=== PATIENT | male | born 1940 | race Caucasian/White ===

== ENCOUNTER 2016-03-17 12:16 | Observation (INO) | payer OTHER ==
[~2016-03-17] VITALS: Ht 175.3 cm; Wt 97.3 kg
[~2016-03-17 12:16] MED LIST: ALLOPURINOL300 MG PO; CELEBREX200 MG PO; FLOMAX0.4 M1 PO; FLOMAX0.4 MG PO; IBUPROFEN800 MG PO; PERCOCET 5/31 TABLET PO; SIMVASTATIN40 M1 PO
[2016-03-17] MEDS ORDERED: ZESTRIL20 MG PO (12:56)
[2016-03-17] MEDS ORDERED: TRAMADOL HCL50 MG PO (12:57)
[2016-03-17] MEDS ORDERED: ZYTIGA250 MG PO (12:57)
[2016-03-17] MEDS ORDERED: MILLIPRED5 MG PO (12:58)
[2016-03-17] MEDS ORDERED: MORPHINE SULFAT15 M1 PO ×2 (12:59→13:00)
[2016-03-17] MEDS ORDERED: FISH OIL 1,0001 EAC7 PO (13:01)
[2016-03-17] MEDS ORDERED: SAW PALMETTO450 MG PO (13:02)
[2016-03-17] MEDS ORDERED: CINNAMON500 MG PO (13:03)
[2016-03-17] MEDS ORDERED: CALCIUM600 M1 PO (13:04)
[2016-03-17] MEDS ORDERED: MAGNESIUM250 MG PO (13:05)
[2016-03-17] MEDS ORDERED: CO Q-1050 MG PO (13:05)
[2016-03-17] MEDS ORDERED: VITAMIN C500 M1 PO (13:07)
[2016-03-17] MEDS ORDERED: LUTEIN20 MG PO ×2 (13:07)
[2016-03-17 13:41] LABS: HEMATOCRIT 38.8 % (38.0-50.0); MCH 31.9 PG (29.0-34.0); MCHC 33.5 G/DL (30.0-36.0); MCV 95.3 FL (86-99); MEAN PLAT.VOLUME 9.2 uM^3 (9.0-12.4); PLATELET COUNT 245 K/uL (156-360); RBC DIS.WIDTH-CV 13.9 % (11.8-14.6); RBC DIS.WIDTH-SD 46.6 % (39-53); RED BLOOD COUNT 4.07 M/uL (4.00-5.50)
[2016-03-17 14:06] LABS: TROP-I INTERPRETATION NEGATIVE; TROPONIN-I < 0.01 ng/mL (0.0-0.30)
[2016-03-17 15:05] LABS: BILIRUBIN NEGATIVE; BLOOD NEGATIVE; COLOR YELLOW ((YELLOW)); GLUCOSE (STRIP) NEGATIVE; KETONES 15; LEUKOCYTES NEGATIVE; NITRITE NEGATIVE; PH, URINE 6.5 (5-8); PROTEIN (STRIP) TRACE; SPECIFIC GRAVITY 1.024 (1.000-1.030); UROBILINOGEN 0.2 MG/DL (0.2-1.0)
[2016-03-17 15:09] LABS: ADD MIUA? NO; UCUL ADDED? NO
[2016-03-17 16:16] LABS: CHLORIDE 104 mEq/L (99-109); POTASSIUM 4.1 mEq/L (3.7-5.4); SODIUM 140 mEq/L (136-147)
[2016-03-17 16:18] LABS: GLUCOSE 115 mg/dL (70-99)
[2016-03-17 16:20] LABS: ANION GAP 16 MEQ/L (2-14); TOTAL BILIRUBIN 0.7 mg/dL (0.0-1.0)
[2016-03-17 16:22] LABS: ALKALINE PHOSPHATASE 50 IU/L (3-129); GFR ESTIMATE (CALCULATED) > 59 mL/min/
[2016-03-17 16:23] LABS: UREA NITROGEN (BUN) 15 mg/dL (9-23)
[2016-03-17 16:25] LABS: LIPASE 21 U/L (1.0-51.0)
[2016-03-17] MEDS ORDERED: ZOCOR40 MG PO (18:56)
[2016-03-17 23:25] VITALS: BP 121/68
[2016-03-18 01:49] LABS: TROP-I INTERPRETATION NEGATIVE; TROPONIN-I < 0.01 ng/mL (0.0-0.30)
[2016-03-18 09:11] VITALS: BP 123/82
[2016-03-18 11:47] VITALS: BP 151/85
== END 2016-03-18 11:52 | disposition home or self-care (01) ==
LOC: EME 12:16 → RME 12:16 → EDOF 19:37 → 5WEST 19:37
PROVIDERS: Nurse Practitioner Family; Physician Assistant Medical
DX: R55 Syncope and collapse (principal); I10 Essential (primary) hypertension; E78.5 Hyperlipidemia, unspecified; R11.2 Nausea with vomiting, unspecified; R19.7 Diarrhea, unspecified; G89.29 Other chronic pain; Z85.46 Personal history of malignant neoplasm of prostate; Z92.21 Personal history of antineoplastic chemotherapy; Z92.3 Personal history of irradiation; Z87.891 Personal history of nicotine dependence; Z79.891 Long term (current) use of opiate analgesic
CPT/HCPCS: 70450; 74176; 80053; 81003; 83605; 83690; 84484; 85027; 93005; 99281; 99285; G0378; J1644; J7040

== ENCOUNTER 2017-06-14 13:20 | Inpatient (IN) | payer OTHER ==
[~2017-06-14] VITALS: Ht 172.7 cm; Wt 82.4 kg
[~2017-06-14 13:20] MED LIST changes: +CALCIUM600 M1 PO; +CINNAMON500 MG PO; +CO Q-1050 MG PO; +FISH OIL 1,0001 EAC7 PO; +LUTEIN20 MG PO; +MAGNESIUM250 MG PO; +MILLIPRED5 MG PO; +MORPHINE SULFAT15 M1 PO; +SAW PALMETTO450 MG PO; +TRAMADOL HCL50 MG PO; +VITAMIN C500 M1 PO; +ZESTRIL20 MG PO; +ZOCOR40 MG PO; +ZYTIGA250 MG PO
[2017-06-14 14:06] LABS: HEMATOCRIT 33.1 % (38.0-50.0); HEMOGLOBIN 11.1 G/DL (12.5-16.6); MCH 32.1 PG (29.0-34.0); MCHC 33.5 G/DL (30.0-36.0); MCV 95.7 FL (86-99); NRBC (%) 0.4 /100 WBC (0-0); PLATELET COUNT 255 K/uL (156-360); RBC DIS.WIDTH-CV 15.2 % (11.8-14.6); RBC DIS.WIDTH-SD 53.1 % (39-53); RED BLOOD COUNT 3.46 M/uL (4.00-5.50); WHITE BLOOD COUNT 4.8 K/uL (4.1-10.2)
[2017-06-14 14:14] LABS: INTER. NORMALIZED RATIO 1.1
[2017-06-14 14:16] LABS: ALBUMIN 3.8 g/dL (3.2-4.8); CHLORIDE 101 mEq/L (99-109); PTT 31.1 SEC (25-37); SODIUM 140 mEq/L (136-147)
[2017-06-14 14:18] LABS: GLUCOSE 123 mg/dL (70-99); TOTAL PROTEIN 6.3 g/dL (6.4-8.3)
[2017-06-14 14:20] LABS: TOTAL BILIRUBIN 0.4 mg/dL (0.0-1.0)
[2017-06-14 14:22] LABS: ALKALINE PHOSPHATASE 69 IU/L (3-129); CREATININE 0.8 mg/dL (0.6-1.3); GFR ESTIMATE (CALCULATED) > 59 mL/min/ (58.99-99999)
[2017-06-14 14:23] LABS: UREA NITROGEN (BUN) 12 mg/dL (9-23)
[2017-06-14 14:24] LABS: AST (GOT) 26 IU/L (2-34); DIRECT BILIRUBIN 0.2 mg/dL (0.0-0.3)
[2017-06-14 14:25] LABS: ALT (GPT) 26 IU/L (3-49); LIPASE 23 U/L (1.0-51.0)
[2017-06-14 16:15] LABS: APPEARANCE SL.HAZY ((CLEAR)); BILIRUBIN NEGATIVE; BLOOD NEGATIVE; COLOR YELLOW ((YELLOW)); GLUCOSE (STRIP) NEGATIVE; KETONES 20; LEUKOCYTES TRACE; NITRITE NEGATIVE; PROTEIN (STRIP) 30; SPECIFIC GRAVITY 1.024 (1.000-1.030)
[2017-06-14 16:51] LABS: BACTERIA 1+ /HPF; EPITHELIAL CELLS NONE SEEN /HPF; MUCUS NONE SEEN /LPF; RED BLOOD CELLS 0-5 /HPF (0-5)
[2017-06-14] MEDS ORDERED: MILK THISTLE500 MG PO (17:43)
[2017-06-14] MEDS ORDERED: ZYTIGA250 MG PO (17:44)
[2017-06-14] MEDS ORDERED: ROXICODONE5 MG PO (17:45)
[2017-06-14] MEDS ORDERED: MELATONIN5 M1 PO (17:45)
[2017-06-14] MEDS ORDERED: PREDNISONE5 MG PO (17:46)
[2017-06-14] MEDS ORDERED: ADVIL PM1 TABLET PO (17:46)
[2017-06-14 22:33] VITALS: BP 135/69
[2017-06-15 07:10] VITALS: BP 114/64
[2017-06-15 08:37] LABS: HEMOGLOBIN 10.4 G/DL (12.5-16.6); MCH 31.8 PG (29.0-34.0); MCHC 33.5 G/DL (30.0-36.0); MCV 94.8 FL (86-99); PLATELET COUNT 271 K/uL (156-360); RBC DIS.WIDTH-CV 14.6 % (11.8-14.6); RBC DIS.WIDTH-SD 50.7 % (39-53); RED BLOOD COUNT 3.27 M/uL (4.00-5.50); WHITE BLOOD COUNT 5.5 K/uL (4.1-10.2)
[2017-06-15 09:01] LABS: CHLORIDE 101 MEQ/L (99-109); CREATININE 0.6 MG/DL (0.6-1.3); GFR ESTIMATE (CALCULATED) > 59 mL/min/ (58.99-99999); GLUCOSE 150 mg/dL (70-99); POTASSIUM 4.4 MEQ/L (3.7-5.4); SODIUM 138 MEQ/L (136-147); UREA NITROGEN (BUN) 10 mg/dL (9-23)
[2017-06-15 15:10] VITALS: BP 111/56
[2017-06-16] VITALS: BP 129/62
[2017-06-16 07:15] VITALS: BP 106/58
[2017-06-16 15:55] VITALS: BP 142/69
[2017-06-16 23:27] VITALS: BP 148/82
[2017-06-17 08:00] VITALS: BP 153/87
[2017-06-17 15:00] VITALS: BP 140/80
[2017-06-17 23:45] VITALS: BP 133/74
[2017-06-18 08:02] VITALS: BP 128/74
[2017-06-18] MEDS ORDERED: SENNA LAX8.6 MG PO (14:37)
[2017-06-18] MEDS ORDERED: DECADRON2 MG PO (14:41)
== END 2017-06-18 17:23 | disposition home or self-care (01) | DRG 543 ==
LOC: EME 13:20 → 5EAST 18:59 → EDOF 18:59 → ENRESERV 19:00 → 5EAST 22:32
PROVIDERS: Emergency Medicine; Hospitalist; Internal Medicine
PROC: DP0C4ZZ Beam Radiation of Other Bone using Heavy Particles (Protons,Ions) (ICD-10-PCS; principal; 2017-06-17)
DX: C79.51 Secondary malignant neoplasm of bone (principal); G89.3 Neoplasm related pain (acute) (chronic); C61 Malignant neoplasm of prostate; G95.29 Other cord compression; R33.8 Other retention of urine; E86.0 Dehydration; N39.0 Urinary tract infection, site not specified; M48.02 Spinal stenosis, cervical region; K59.00 Constipation, unspecified; M48.061 Spinal stenosis, lumbar region without neurogenic claudication; R63.0 Anorexia; R11.2 Nausea with vomiting, unspecified; M54.16 Radiculopathy, lumbar region; I10 Essential (primary) hypertension; E78.5 Hyperlipidemia, unspecified; M10.9 Gout, unspecified; F32.9 Major depressive disorder, single episode, unspecified; Z66 Do not resuscitate; Z51.5 Encounter for palliative care; Z87.891 Personal history of nicotine dependence; Z92.21 Personal history of antineoplastic chemotherapy; Z92.3 Personal history of irradiation; Z80.41 Family history of malignant neoplasm of ovary; Z80.8 Family history of malignant neoplasm of other organs or systems; Z81.1 Family history of alcohol abuse and dependence
CPT/HCPCS: 71045; 72128; 72131; 72157; 72158; 77280; 77295; 77300; 77331; 77402; 80048; 80053; 81003; 82248; 82948; 83690; 83880; 85027; 85610; 85730; 93970; 99281; 99285; C1753; J1100; J1170; J1644; J2405; J3010; J7030; J7050; J7512; Q0164

== ENCOUNTER 2017-06-23 16:03 | Emergency (ER) | payer OTHER ==
[~2017-06-23] VITALS: Ht 172.7 cm; Wt 79.5 kg
[~2017-06-23 16:03] MED LIST changes: +ADVIL PM1 TABLET PO; +DECADRON2 MG PO; +MELATONIN5 M1 PO; +MILK THISTLE500 MG PO; +PREDNISONE5 MG PO; +ROXICODONE5 MG PO; +SENNA LAX8.6 MG PO
[2017-06-23 17:33] LABS: BASOPHIL (%) 0.2 % (0-1); EOSINOPHIL (%) 0.1 % (0-5); HEMATOCRIT 37.8 % (38.0-50.0); IMMATURE GRANULOCYTE (%) 2.1 % (0.0-0.7); LYMPHOCYTE (%) 2.1 % (15-42); LYMPHOCYTE COUNT 0.2 K/uL (1.0-2.8); MCH 32.2 PG (29.0-34.0); MCHC 34.4 G/DL (30.0-36.0); MCV 93.6 FL (86-99); MONOCYTE (%) 8.1 % (3-12); MONOCYTE COUNT 0.8 K/uL (0-0.8); NEUTROPHIL (%) 87.4 % (45-76); NEUTROPHIL COUNT 8.2 K/uL (1.8-6.4); NRBC (%) 0.2 /100 WBC (0-0); PLATELET COUNT 226 K/uL (156-360); RBC DIS.WIDTH-CV 15.6 % (11.8-14.6); RBC DIS.WIDTH-SD 53.3 % (39-53); RED BLOOD COUNT 4.04 M/uL (4.00-5.50); WHITE BLOOD COUNT 9.4 K/uL (4.1-10.2)
[2017-06-23 17:35] LABS: ALBUMIN 3.9 g/dL (3.2-4.8); CHLORIDE 97 mEq/L (99-109); POTASSIUM 4.9 mEq/L (3.7-5.4); SODIUM 133 mEq/L (136-147)
[2017-06-23 17:37] LABS: GLUCOSE 129 mg/dL (70-99)
[2017-06-23 17:38] LABS: TOTAL PROTEIN 6.3 g/dL (6.4-8.3)
[2017-06-23 17:41] LABS: ALKALINE PHOSPHATASE 62 IU/L (3-129); CREATININE 0.8 mg/dL (0.6-1.3); GFR ESTIMATE (CALCULATED) > 59 mL/min/ (58.99-99999)
[2017-06-23 17:42] LABS: UREA NITROGEN (BUN) 20 mg/dL (9-23)
[2017-06-23 17:43] LABS: AST (GOT) 22 IU/L (2-34)
[2017-06-23 17:44] LABS: ALT (GPT) 22 IU/L (3-49)
[2017-06-23 18:39] LABS: APPEARANCE SL.HAZY ((CLEAR)); BILIRUBIN NEGATIVE; BLOOD NEGATIVE; COLOR YELLOW ((YELLOW)); GLUCOSE (STRIP) NEGATIVE; KETONES NEGATIVE; LEUKOCYTES NEGATIVE; NITRITE NEGATIVE; PROTEIN (STRIP) NEGATIVE; SPECIFIC GRAVITY 1.011 (1.000-1.030); UROBILINOGEN 0.2 MG/DL (0.2-1.0)
[2017-06-23 18:45] LABS: BACTERIA 1+ /HPF; EPITHELIAL CELLS NONE SEEN /HPF; MUCUS TRACE /LPF; UCUL ADDED? YES
[2017-06-23 22:13] VITALS: BP 110/75
== END 2017-06-23 22:18 | disposition hospice, home (50) ==
LOC: EME 16:03
PROVIDERS: Emergency Medicine
DX: C79.51 Secondary malignant neoplasm of bone (principal); G89.3 Neoplasm related pain (acute) (chronic); C61 Malignant neoplasm of prostate; Z92.3 Personal history of irradiation; I10 Essential (primary) hypertension; E78.5 Hyperlipidemia, unspecified; R33.9 Retention of urine, unspecified; Z96.0 Presence of urogenital implants; Z87.891 Personal history of nicotine dependence; Z88.5 Allergy status to narcotic agent
CPT/HCPCS: 80053; 81003; 85025; 87077; 87086 GA; 87186; 87493; 99281; 99285; J1170; J3010; J7050